=== PATIENT | male | born 1945 | race Two or more races ===

== ENCOUNTER 2021-11-09 08:46 | Outpatient (CLI) | payer OTHER ==
[~2021-11-09 08:46] MED LIST: ANUCORT-HC25 MG/SUPP; ASA81 MG; LANSOPRAZOLE30 MG; LOSARTAN-HCTZ1 EACH; OXYC1TAB9 PO; TERAZOSIN HCL10 MG; XARELTO 10MG PO
== END 2021-11-09 15:07 | disposition home or self-care (01) ==
LOC: TOM 08:46
PROVIDERS: ATTEND Internal Medicine Gastroenterology
DX: K57.90 Diverticulosis of intestine, part unspecified, without perforation or abscess without bleeding (principal); K44.9 Diaphragmatic hernia without obstruction or gangrene; Z79.01 Long term (current) use of anticoagulants